=== PATIENT | female | born 1960 ===

== ENCOUNTER 2018-06-24 08:44 | Outpatient (RCR) | payer OTHER, SELFPAY ==
--- NOTE | 2018-06-24 08:55 | PTTR_ITS ---
DATE: 06/24/18 SUBJECTIVE: Pt states that she is noticing a little less discomfort in the back today. She still feels some issues with fatigue where she does not know if it is related to her fibro at all. OBJECTIVE: Manual therapy: ([id number]).Pt placed in the supine position receiving (B) traction to the LE for lumbar decompression. She is then mobilized to the hips with light traction and a slight posterior glide of the femoral head while mobilized into deep hip flexion, IR and ER of the hip. This occurs (B) and she is stretched through the hamstrings and piriformis with active isolated stretching technique and in the prone position mobilized with hip extension coordinated with knee flexion initially and then PA glides applied through the thoracic spine with grade 3 mobilization strength for actual vertebral improvement in motion. She is placed in Q-ped provided with a jourdan pose stretch after significant cueing to achieve multisegmental flexion through the thoracic and lumbar spine and then she is mobilized with the lumbar lock position for thoracic rotation occurring (B) with multiple reps of end range pulses. Pt tolerates tx well. Direct treatment time: 30 minutes Total treatment time: 30 minutes
== END 2018-07-17 23:59 | disposition home or self-care (01) ==
LOC: PT 08:44
PROVIDERS: Family Provider Family Medicine; PCP Family Medicine; Referring Provider Family Medicine; Visit Provider Family Medicine
DX: M53.86 Other specified dorsopathies, lumbar region (principal); M51.16 Intervertebral disc disorders with radiculopathy, lumbar region
CPT/HCPCS: 97140

== ENCOUNTER 2021-06-07 01:20 | Outpatient (CLI) | payer OTHER, SELFPAY ==
--- NOTE | 2021-06-07 | DI.MRI_ITS ---
Exam(s) MR LUMBAR SPINE WO/W EXAM: MR LUMBAR SPINE WO/W CLINICAL HISTORY: EPENDYMOMA,C71.9BRAIN NEOPLASM SURVEILLANCE. TECHNIQUE: Multiplanar multisequence MRI of the Lumbar spine was performed. Both pre and post contra st infused sequences were performed. Contrast infused was 17 mL Dotarem FINDINGS: There are no plain films available at the time of this MRI interpretation. Therefore 5 lumbar vertebrae are presumed. Conus medullaris is at the L1-2 level. There is no evidence of conus mass nor subjacent clumping of intrathecal nerve roots to suggest arachnoiditis. The distal thecal sac appears unremarkable.There a re bilateral Tarlov intra sacral cysts at the S2 level, these unchanged in size from April 2019. There is no abnormal thickening of the filum terminale nor enhancing lesions in the cauda equina. Th ere are no abnormal paraspinal nor epidural fluid collections. No abnormal findings in the paraspina l musculature. Bones:There are no fractures nor ominous osseous lesions in the lumbar vertebral bodies and visualize d sacrum. There is a nonacute Schmorl's node invagination in the inferior endplate of L1 which was n ot evident in 2019 does not exhibit surrounding bone edema. There has been removal of posterior osseous elements at the L3 level. With respect to the individual levels... T12-L1: Unremarkable L1-2: Normal disc height and signal. Minimal annular bulging. No disc herniation nor central canal s tenosis andno foraminal stenosis. No facet arthropathy. L2-3: Normal disc height and signal. Bilateral annular bulging, slightly more so on the left side. No significant foraminal stenosis. No disc herniation nor central canal stenosis.Absent posterior os seous elements L3. No mass nor fluid collection at this level. No abnormal in enhancement.No facet arthropathy. L3-4: Normal disc height and signal. There is relatively symmetrical annular bulging bilaterally at the floor of the exiting neural foramina but without significant foraminal stenosis on either side. Central canal dimensions are lower normal. No significant facet arthropathy. No prominent ligamentu m flavum hypertrophy. No significant abnormal enhancement at this level. L4-5: There is mild disc space narrowing on the right side of this disc space. Also small radial tea r in the lateral right annulus at this level but without a true disc herniation at this level. The p reviously present abnormal finding behind the L4 vertebral body is no longer present. There is annul ar bulging in the floor of the exiting right neural foramen but without prominent foraminal stenosis. Exiting left neural foramen is patent. There is increased signal within the left facet joint at th is level. This appears to be related to some degenerative change. There is no degenerative synovial cyst. There is mild central spinal canal stenosis at this level due to mild annular bulging, short AP dimensions the pedicles and ligamentum flavum hypertrophy. L5-S1: This level exhibits moderate disc space narrowing symmetrical annular bulging without a distin ct focal disc herniation. No central canal stenosis. There is mild vertical foraminal stenosis bila terally due to disc height loss posteriorly. There minimal degenerative changes in the facet joints. No ligamentum flavum hypertrophy. This level appears unchanged from prior study April 2019 Soft tissues: paraspinal soft tissues appear unremarkable. IMPRESSION: 1. Compared to the prior MRI scan of April 2019 there is again noted surgical absence of posterior oss eous elements at L3 level. The previously present density immediately behind the L4 vertebral body i ntimately associated with the posterior longitudinal ligament is no longer seen. 2. There no abnormal fluid collections the epidural and paraspinal regions. No evidence of discitis nor osteomyelitis. 3. Nonacute appearing Schmorl's node invagination in the inferior endplate of L1 which was not eviden t in April 2019 but which is not associated with surrounding bone edema and therefore not acute. 4. Multilevel mild disc and annular 5 bulging but no prominent dominant disc herniation. Mild centr al canal stenosis at L4-5 level. DATA REPOSITORY:
[2021-06-07] MEDS: Gadoterate meglumine 20 ML VIAL 17 ML IVP (10:55)
== END 2021-06-07 01:40 ==
PROVIDERS: PCP Family Medicine; Visit Provider Neurological Surgery
DX: C71.9 Malignant neoplasm of brain, unspecified (principal); M51.26 Other intervertebral disc displacement, lumbar region; M48.061 Spinal stenosis, lumbar region without neurogenic claudication; M51.46 Schmorl's nodes, lumbar region
CPT/HCPCS: 72158

== ENCOUNTER → 2022-07-17 01:51 | Outpatient (CLI) | payer OTHER, SELFPAY ==
[2022-07-17 13:11] LABS: BUN 21 mg/dL (7-18); CREATININE 1.1 mg/dL (0.55-1.02); Estimated GFR 57.17 (mL/min/1.73m2)
--- NOTE | 2022-07-17 13:30 | DI.MRI_ITS ---
Exam(s) MR LUMBAR SPINE WO/W EXAM: MR LUMBAR SPINE WO/W CLINICAL HISTORY: EPENDYMOMA, WHO GRADE II, C71.9, BRAIN/RECORD LIBRARIAN NEOPLASM, SURVEILLANCE. TECHNIQUE: Multiplanar multisequence MRI of the Lumbar spine was performed both pre and post contras t infused sequences.. Contrast injected was Dotarem 16 mL. MR MR LUMBAR SPINE WO/W from 06/07/2021 FINDINGS: This is apparently a routine follow-up study to determine for recurrence of previously resected neopl asm, apparently ependymoma. Patient has no new symptoms. Conus medullaris is again noted to be at L1-2 level. There is no evidence of conus mass nor subjacen t clumping of intrathecal nerve roots to suggest arachnoiditis. The distal thecal sac appears unrema rkable.Previously described bilateral Tarlov intra sacral cyst at the S2 level are again noted and un changed from prior studies. There is no abnormal thickening of the filum terminalis and there are no enhancing lesions in the cauda equina nor at the level of the conus medullaris. No evidence of ???d rop??? -type lesions. Bones:There are no fractures nor ominous osseous lesions in the lumbar vertebral bodies and visualize d sacrum. Schmorl's node invagination in the inferior endplate of L1 is again noted. No associated bone edema at this level nor elsewhere in the lumbosacral spinal column. No abnormal intraosseous en hancement nor abnormal epidural enhancement. No abnormal enhancement of the cauda equina. No eviden ce of There has been surgical removal of posterior osseous elements L2 level. There is no evidence of abno rmal paraspinal nor epidural fluid collection. With respect to the individual levels... T12-L1: Unremarkable L1-2: Normal disc height and signal. Schmorl's node invagination in the inferior endplate of L1 is un changed. No associated bone edema. No significant disc herniation. No central canal stenosis. No fora lucina stenosis.No foraminal stenosis L2-3: The posterior osseous elements of L2 are surgically absent this level exhibits some deteriorati on. Although there is preserved disc height and signal, there is now mild retrolisthesis of L2 upon L 3. Mild annular bulging without a dominant disc herniation. The central canal dimensions are lower no rmal. However, there is now mild-moderate foraminal stenosis on the left side due to mild retrolisthe sis as well as some annular bulging in the floor of the exiting left neural foramen. There is no sign ificant foraminal stenosis on the opposite-right side at this level. There is no facet arthropathy ev ident. L3-4: Normal disc height. No disc herniation. Mild central canal stenosis is noted which is mostly r elated to short AP dimensions the pedicles. There is some annular bulging in the floor of the exiting neural foramina bilaterally. Mild foraminal stenosis on the right side; less so on the left side. No facet arthropathy evident. L4-5: Normal disc height and signal. Symmetrical annular bulging without a dominant disc herniation. Central canal dimensions are lower normal. No significant foraminal stenosis. Mild facet degenerative changes on the left side. Less degenerative change on the right side facet joint. L5-S1: Mild disc space narrowing posteriorly. Symmetrical posterior annular bulging but without signi ficant disc herniation or central canal stenosis. There is mild bilateral foraminal stenosis again no kanchan which is mostly related to the disc height loss bilaterally in the posterior disc space. The exit ing nerve roots contact no facet arthropathy. POSTCONTRAST: No abnormal enhancing intrathecal structures. No enhancing lesions in the cauda equinae . There is multilevel retro vertebral enhancement in the sub spinous region posterior to the vertebra l bodies and confined by the posterior longitudinal ligament, most evident at L4 level. This is symme trical in appearance both sides of midline. Has benign appearance and is probably related to the post erior venous plexus at these levels.. This is unchanged from MRI scan of April 2019. Soft tissues: paraspinal soft tissues appear unremarkable. IMPRESSION: 1. Again noted is surgical absence of the posterior osseous elements of L2. Apparently there has been surgical excision of an ependymoma. 2. The conus medullaris and intrathecal compartment including the cauda equina appear unremarkable. N o evidence of new intrathecal mass. 3. Immediate retro vertebral symmetrical benign-appearing enhancement is again noted, unchanged from April 2019. I feel this is probably related to the posterior subligamentous venous plexus (as opposed to significant pathology). No new osseous findings. DATA REPOSITORY:
== END ==
PROVIDERS: PCP Family Medicine; Visit Provider Neurological Surgery
DX: Z01.812 Encounter for preprocedural laboratory examination (principal); C71.9 Malignant neoplasm of brain, unspecified; M48.061 Spinal stenosis, lumbar region without neurogenic claudication; M51.26 Other intervertebral disc displacement, lumbar region; M51.46 Schmorl's nodes, lumbar region; Z98.890 Other specified postprocedural states
CPT/HCPCS: 72158; 84520; 82565

== ENCOUNTER 2024-10-18 02:03 | Outpatient (CLI) | payer OTHER, SELFPAY ==
--- NOTE | 2024-10-18 | DI.MRI_ITS ---
Exam(s) MR LUMBAR SPINE WO/W EXAM: MR LUMBAR SPINE WO/W CLINICAL HISTORY: EPENDYMOMA, WHO GRADE II C71.9, BRAIN NEOPLASM. TECHNIQUE: Multiplanar multisequence MRI of the Lumbar Spine was performed. Additional pre and post gadolinium fat suppressed T1 sagittal and axial sequences were performed. CONTRAST MATERIAL: IV Contrast: mL of Dotarem contrast administered. COMPARISON: CR XR CHEST, 2 VIEWS from 12/04/2019 MR MR LUMBAR SPINE WO/W from 07/17/2022 FINDINGS: Bones: The last intervertebral disc space is designated the L5/S1 level for the numbering purpose of this examination. The vertebral body heights are well maintained. The signal characteristics are unremarkable. Cord: The conus tip ends at the L1-2 level. It is of normal size and signal intensity. T12-L1: No disc herniations or bulges are present. No central spinal canal or neural foraminal stenos is. L1-2: No disc herniations or bulges are present. No central spinal canal or neural foraminal stenosis . Schmorl's node again noted inferior endplate of L1. L2-3: Surgical resection of posterior elements again noted. Mild retrolisthesis again noted. Mild d isc bulging. No focal disc herniation. No central spinal canal stenosis. Moderate left neural fora lucina narrowing. L3-4: Mild disc bulging. Mild central canal stenosis. Mild right neural foraminal narrowing. L4-5: Concentric disc bulging. No focal disc herniation. No central spinal canal or neural foramina l stenosis. Facet degenerative changes greater on the left. L5-S1: Mild narrowing of the posterior aspect of the disc space and mild annular bulging. Mild bilat eral neural foraminal narrowing. No significant central canal stenosis. The visualized SI joints are unremarkable. S2 Tarlov cysts are again noted.. Soft tissues: The paraspinal soft tissues are unremarkable. There is no evidence of suspicious enhancement within the central canal or involving the nerve roots. No abnormal enhancement within the bony structures.. IMPRESSION: Stable appearance of the lumbar spine postsurgical and degenerative changes.. No evidence of recurre nce mass or metastatic disease. DATA REPOSITORY:
[2024-10-18] MEDS: Gadoterate meglumine 20 ML SYRINGE IVP (10:28)
[2024-10-18] MEDS: Normal Saline Flush 10 ML SYR IVP (10:28)
== END 2024-10-18 02:23 ==
PROVIDERS: PCP Family Medicine; Visit Provider Physician Assistant
DX: C71.9 Malignant neoplasm of brain, unspecified (principal); Z98.890 Other specified postprocedural states; M51.26 Other intervertebral disc displacement, lumbar region
CPT/HCPCS: 72158